=== PATIENT | female | born 1980 | race Caucasian/White ===

== ENCOUNTER 2018-11-07 07:40 | Outpatient (CLI) | payer BC ==
[2018-11-07 18:05] LABS: Hemoglobin 14.6 g/dL (12.0-16.0); Mean Corpuscular Hemoglobin 31.6 pg (27.0-31.0); Mean Corpuscular Volume 90.4 fL (78.0-98.0); Mean Platelet Volume 7.6 fL (7.4-10.4); Platelet Count 297 thou/uL (130-400); RBC Distribution Width 11.5 % (11.5-14.5); Red Blood Cell (RBC) Count 4.62 mill/uL (4.20-5.40); White Blood Cell (WBC) Count 8.3 thou/uL (4.8-10.8)
[2018-11-07 18:25] LABS: ALT (SGPT) 23 U/L (8-55); AST (SGOT) 19 U/L (5-34); Albumin 4.4 g/dL (3.5-5.0); Alkaline Phosphatase 82 U/L (40-150); Anion Gap 13 mmol/L (10-20); BUN (Urea Nitrogen) 11 mg/dL (7.0-18.7); Bilirubin, Total 0.4 mg/dL (0.2-1.2); Calc. Creatinine Clearance 0 mL/min (70-130); Calcium 9.6 mg/dL (7.8-10.44); Carbon Dioxide 24 mmol/L (22-29); Chloride 104 mmol/L (98-107); Estimated GFR-MDRD 80; Globulin 3.3 g/dL (2.4-3.5); Glucose 92 mg/dL (70-105); Potassium 3.9 mmol/L (3.5-5.1); Protein, Total 7.7 g/dL (6.0-8.3); Sodium 137 mmol/L (136-145)
--- NOTE | 2018-11-07 23:22 | HP ---
She is scheduled for surgery on 11/11/2018. HISTORY OF PRESENT ILLNESS: Ms. Wren is a 38-year-old white female, previous laparoscopic vaginal hysterectomy in the past for benign disease, who presented with symptoms consistent with rectocele. She has been noting a vaginal bulge. She has been needing to perform splinting techniques to aid in evacuation of her stool. She also reports some dyspareunia in the vaginal area to the vaginal vault. She denies any other pelvic prolapse symptoms. Denies any stress urinary incontinence symptoms. 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 SOCIAL HISTORY: She is a nonsmoker. No excessive alcohol use or drug use. CURRENT MEDICATIONS: 1. Alprazolam 0.5 mg tablet p.r.n. anxiety. 2. Bupropion 150 mg XL tablet daily. 3. Enalapril 10 mg daily. 4. Levothyroxine 50 mcg daily. 5. Metoprolol 50 mg ER daily. 6. MiraLAX. ALLERGIES: SHE REPORTS PENICILLIN A CHILD WITH A RASH. OB HISTORY: G2, P2, two vaginal deliveries. PHYSICAL EXAMINATION: VITAL SIGNS: Weight is 186 pounds, height 5 feet 4 inches, BMI 31.9, blood pressure 114/70, pulse 82 and regular, respiratory rate 18 and regular. CHEST: Clear to auscultation. HEART: Regular rate and rhythm. S1 and S2 heart sounds. No murmurs, rubs, or gallops. She does have a well-healed thoracotomy scar from her pediatric surgery. ABDOMEN: Soft, nontender, nondistended with no palpable masses. PELVIC: Vulva and vagina had no lesions. Anterior vaginal vault appears supported. There is no excessive cystocele noted posteriorly. She has a grade 3 rectocele with lax perineal body. EXTREMITIES: Nontender. ASSESSMENT: A 38-year-old white female with previous laparoscopically-assisted vaginal hysterectomy with symptomatic grade 2-3 rectocele and lax perineal body. PLAN: Proceed with posterior repair and perineoplasty on 11/11/2018. Risks and benefits of surgery have been discussed in detail and she is set for surgery. Job ID: [id number]
--- NOTE | 2018-11-08 16:56 | EKG ---
Test Reason : Blood Pressure : / mmHG Vent. Rate : 064 BPM Atrial Rate : 064 BPM P-R Int : 150 ms QRS Dur : 074 ms QT Int : 406 ms P-R-T Axes : 065 084 076 degrees QTc Int : 418 ms Normal sinus rhythm Normal ECG No previous ECGs available Confirmed by DR. Lesley MOSS ([id number]) on 11/08/2018 4:56:35 PM Referred By: RIAN Confirmed By:DR. Lesley MOSS
== END 2018-11-07 07:41 | disposition home or self-care (01) ==
LOC: LABBT 07:40
PROVIDERS: ATTEND Obstetrics & Gynecology
DX: Z01.818 Encounter for other preprocedural examination (principal); N81.6 Rectocele
CPT/HCPCS: 80053; 85027; 86850; 86900; 86901; 93005; 93010

== ENCOUNTER 2018-11-07 16:00 | Inpatient (IN) | payer BC ==
[2018-11-07 16:30] VITALS: BMI 31.6
--- NOTE | 2018-11-07 23:22 | HP ---
She is scheduled for surgery on 11/11/2018. HISTORY OF PRESENT ILLNESS: Ms. Wren is a 38-year-old white female, previous laparoscopic vaginal hysterectomy in the past for benign disease, who presented with symptoms consistent with rectocele. She has been noting a vaginal bulge. She has been needing to perform splinting techniques to aid in evacuation of her stool. She also reports some dyspareunia in the vaginal area to the vaginal vault. She denies any other pelvic prolapse symptoms. Denies any stress urinary incontinence symptoms. 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 SOCIAL HISTORY: She is a nonsmoker. No excessive alcohol use or drug use. CURRENT MEDICATIONS: 1. Alprazolam 0.5 mg tablet p.r.n. anxiety. 2. Bupropion 150 mg XL tablet daily. 3. Enalapril 10 mg daily. 4. Levothyroxine 50 mcg daily. 5. Metoprolol 50 mg ER daily. 6. MiraLAX. ALLERGIES: SHE REPORTS PENICILLIN A CHILD WITH A RASH. OB HISTORY: G2, P2, two vaginal deliveries. PHYSICAL EXAMINATION: VITAL SIGNS: Weight is 186 pounds, height 5 feet 4 inches, BMI 31.9, blood pressure 114/70, pulse 82 and regular, respiratory rate 18 and regular. CHEST: Clear to auscultation. HEART: Regular rate and rhythm. S1 and S2 heart sounds. No murmurs, rubs, or gallops. She does have a well-healed thoracotomy scar from her pediatric surgery. ABDOMEN: Soft, nontender, nondistended with no palpable masses. PELVIC: Vulva and vagina had no lesions. Anterior vaginal vault appears supported. There is no excessive cystocele noted posteriorly. She has a grade 3 rectocele with lax perineal body. EXTREMITIES: Nontender. ASSESSMENT: A 38-year-old white female with previous laparoscopically-assisted vaginal hysterectomy with symptomatic grade 2-3 rectocele and lax perineal body. PLAN: Proceed with posterior repair and perineoplasty on 11/11/2018. Risks and benefits of surgery have been discussed in detail and she is set for surgery. Job ID: [id number]
[2018-11-11] MEDS ORDERED: CEFAZOLIN 2 GM/50 ML BAG ONE (11:10)
[2018-11-11] MEDS ORDERED: Famotidine/PF 20 mg/2ml Vial ONE (11:28)
[2018-11-11] MEDS ORDERED: Scopolamine 1.5 mg/72 hour Patch ONE (11:28)
[2018-11-11] MEDS ORDERED: Ondansetron PF 4 MG/2 ML Vial ONE (11:29)
[2018-11-11] MEDS ORDERED: Lidocaine 1% w/Epinephrine 1:100K 30 ML VIAL ONE (14:09)
[2018-11-11] MEDS ORDERED: Midazolam HCl 2 mg/2 ml Vial ONE (15:19)
[2018-11-11] MEDS ORDERED: Fentanyl 250 MCG/5 ML VIAL ONE (15:21)
[2018-11-11] MEDS ORDERED: Glycopyrrolate 0.2 MG/ML 5 ML SYRINGE ONE (16:09)
[2018-11-11] MEDS ORDERED: PROPOFOL 200 MG/20 ML VIAL ONE (16:09)
[2018-11-11] MEDS ORDERED: Lidocaine 1% PF 5 ML VIAL ONE (16:09)
[2018-11-11] MEDS ORDERED: Rocuronium Bromide 10 MG/ML (10ML VIAL) ONE (16:09)
[2018-11-11] MEDS ORDERED: Fentanyl 100 MCG/2 ML VIAL ONE ×3 (16:50→17:22)
[2018-11-11] MEDS ORDERED: traMADol HCl 50 MG TAB PO PRN (18:23)
[2018-11-11] MEDS ORDERED: Morphine 4 MG/ML VIAL SLOW IVP PRN (18:23)
[2018-11-11] MEDS ORDERED: Simethicone Chewable 80 MG TAB PO PRN (18:23)
[2018-11-11] MEDS ORDERED: Ondansetron PF 4 MG/2 ML Vial IVP PRN (18:23)
[2018-11-11] MEDS ORDERED: Zolpidem Tartrate 5 MG TAB PO PRN (18:23)
[2018-11-11] MEDS ORDERED: Bisacodyl 10 MG SUPP PR PRN (18:23)
[2018-11-11] MEDS ORDERED: Promethazine HCl 25 MG/ML VIAL IM PRN (18:23)
[2018-11-11] MEDS ORDERED: Ketorolac Tromethamine 30 MG/ML VIAL ONE (19:24)
[2018-11-11] MEDS: Lactated Ringer's 1,000 ML IV SCH (19:33)
[2018-11-11] MEDS: Ketorolac Tromethamine 30 MG/ML VIAL IVP SCH (19:34)
[2018-11-11] MEDS: Docusate Calcium (SURFAK) 240 MG CAP PO SCH (21:12)
--- NOTE | 2018-11-11 22:15 | OP ---
DATE OF PROCEDURE: 11/11/2018 PREOPERATIVE DIAGNOSES: A 38-year-old white female with previous vaginal hysterectomy with symptomatic grade 3 rectocele. POSTOPERATIVE DIAGNOSES: A 38-year-old white female with previous vaginal hysterectomy with symptomatic grade 3 rectocele. PROCEDURE PERFORMED: Posterior repair. CHAIR UPHOLSTERER SURGEON: Jenna Enamorado PA-C ANESTHESIA: General endotracheal. ESTIMATED BLOOD LOSS: Less than 50 mL. COMPLICATIONS: None. COUNTS: Correct x2. ANTIBIOTICS: 2 g Ancef on-call to OR. FINDINGS: 1. Grade 3 rectocele, status post reduction. 2. No evidence of any suture placement in the rectum on digital exam postoperatively. DISPOSITION: Recovery room, stable. DESCRIPTION OF PROCEDURE: The patient previously received informed consent in regard to surgery. She was taken back to the operating room. She received general endotracheal anesthetic agent without complications. She was placed in dorsal lithotomy position and was prepped and draped in usual sterile fashion. Hall catheter was placed. At this time, the posterior vaginal mucosa was grasped with 2 Allis clamps at 4 o'clock and 8 o'clock. 1% lidocaine with epinephrine was infiltrated in the posterior vaginal mucosa. A midline incision was made up to the vaginal cuff line and then grasped the mucosa edges with Allis clamps. The vaginal mucosa was dissected submucosally past the rectocele defect. Edges of the vaginal mucosa were grasped with Allis clamps as we progressed to the vaginal cuff line. The rectocele was then reduced in its entirety both sharply and bluntly with Metzenbaum scissors. Once this rectocele had been adequately reduced, the endopelvic fascia was then plicated back in the midline with 2-0 Vicryl sutures in a mattress fashion. This started at the vaginal cuff and work toward the perineal introital opening. Once the rectocele was closed in its entirety, the vaginal mucosa was then closed with 2-0 Vicryl incorporating the endopelvic fascia to rid the space. This was carried out to the vaginal mucosa, incision line was closed. Hemostasis was confirmed. The rectocele was reduced in its entirety on digital exam and no evidence of any suture placement and rectum was palpable. A moistened Kerlix gauze as used to pack the vaginal vault. The Hall was draining clear urine. The patient was awakened from anesthesia and transferred to recovery room in stable condition. Job ID: [id number]
[2018-11-12] MEDS: Ketorolac Tromethamine 30 MG/ML VIAL IVP SCH ×2 (00:24→05:37)
[2018-11-12] MEDS: traMADol HCl 50 MG TAB PO PRN ×2 (03:48→11:45)
[2018-11-12] MEDS: Lactated Ringer's 1,000 ML IV SCH ×2 (05:45→11:43)
[2018-11-12 06:07] LABS: Hemoglobin 11.6 g/dL (12.0-16.0); Mean Corpuscular HGB CONC 35.6 g/dL (32.0-36.0); Mean Corpuscular Hemoglobin 32.2 pg (27.0-31.0); Mean Corpuscular Volume 90.4 fL (78.0-98.0); Mean Platelet Volume 7.5 fL (7.4-10.4); Platelet Count 230 thou/uL (130-400); RBC Distribution Width 11.4 % (11.5-14.5)
[2018-11-12 08:14] VITALS: TEMP 97.9
[2018-11-12] MEDS: Docusate Calcium (SURFAK) 240 MG CAP PO SCH (08:56)
[2018-11-12] MEDS ORDERED: Polyethylene Glycol 3350 17 GM Packet PO SCH (09:00)
[2018-11-12] MEDS ORDERED: ALPRAZolam 0.5 MG TAB PO PRN (10:33)
[2018-11-12 11:46] VITALS: BP 114/64
[2018-11-13] MEDS ORDERED: Levothyroxine Sodium 50 MCG TAB PO SCH (06:00)
--- NOTE | 2018-11-13 06:31 | DIS ---
DATE OF ADMISSION: 11/11/2018 DATE OF DISCHARGE: 11/12/2018 DIAGNOSIS: Symptomatic grade 3 rectocele. PROCEDURE PERFORMED: Posterior repair. SUMMARY OF HOSPITAL COURSE: Ms. Wren is a 38-year-old white female with previous laparoscopic-assisted vaginal hysterectomy, had been noticing symptoms from symptomatic, for most right grade 3 rectocele. She underwent surgical repair of this on 11/11/2018. Postoperatively, she has done well. Her vaginal packing and her Hall catheter was just removed on postoperative day #1 in the morning, then she began ambulating, voiding without difficulty after initially some retention, which resolved. She was tolerating regular diet and had adequate pain control with tramadol and ibuprofen. She is given a prescription for the tramadol 50 mg q.6 hours p.r.n. pain, [id number] ibuprofen as directed and is to use [id number] stool softener b.i.d. along with the MiraLAX one capsule daily for her bowel regimen. She is to follow up in three weeks. Job ID: [id number]
[2018-11-13] MEDS ORDERED: Bupropion 150 MG XL TAB PO SCH (09:00)
[2018-11-16] MEDS ORDERED: Ibuprofen 800 MG TAB PO SCH (21:00)
== END 2018-11-12 13:50 | disposition home or self-care (01) | DRG 748 ==
LOC: SURG A 11-11 10:32 → 3SE 11-11 18:13
PROVIDERS: ADMIT Obstetrics & Gynecology; ATTEND Obstetrics & Gynecology
PROC: 0JQC0ZZ Repair Pelvic Region Subcutaneous Tissue and Fascia, Open Approach (ICD-10-PCS; principal; 2018-11-11)
DX: N81.6 Rectocele (principal); Z90.710 Acquired absence of both cervix and uterus; R33.9 Retention of urine, unspecified; N94.10 Unspecified dyspareunia; E03.9 Hypothyroidism, unspecified; F41.9 Anxiety disorder, unspecified; Z87.74 Personal history of (corrected) congenital malformations of heart and circulatory system; Z79.899 Other long term (current) drug therapy; Z88.0 Allergy status to penicillin
CPT/HCPCS: 36415; 85027; J0131; J1885; J2001; J2250; J2270; J2405; J2704; J3010; S0028